=== PATIENT | female | born 1960 | race Caucasian/White ===

== ENCOUNTER → 2020-10-24 | Day surgery (SDC) | payer BC ==
[~2020-10-24] MED LIST: ACETAMINOPHEN 1000 MG/100 ML 100 ML IV ONE; BUPIVACAINE HCL 0.5% INJ 30 ML VIAL INJ ONE; CEFAZOLIN SOD 1 GM/NS 50ML 50 ML IV ONE; FENTANYL CITRATE/PF 100MCG/2 ML INJ ONE; HYDROCODON-ACE1 EA11 PO; KETOROLAC TROMETHAMINE 30 MG/ML VIAL ONE; LEVOTHYROXINE112 MCG PO; MUPIROCIN 2% OINT 22 GM TUBE ONE
[2020-10-24 09:38] VITALS: BP 122/84
== END | disposition home or self-care (01) ==
LOC: OR 05:28
PROVIDERS: ATTEND Plastic Surgery
DX: M72.0 Palmar fascial fibromatosis [Dupuytren] (principal); E03.9 Hypothyroidism, unspecified; F17.210 Nicotine dependence, cigarettes, uncomplicated; Z88.6 Allergy status to analgesic agent; Z01.810 Encounter for preprocedural cardiovascular examination; Z01.812 Encounter for preprocedural laboratory examination; Z20.822 Contact with and (suspected) exposure to COVID-19
CPT/HCPCS: 26123; 26125 ×3; 88304; 93005; J0131; J0690; J1885; J3010; U0002

== ENCOUNTER 2020-11-13 08:54 | Outpatient (RCR) | payer BC ==
[~2020-11-13 08:54] MED LIST changes: -ACETAMINOPHEN 1000 MG/100 ML 100 ML IV ONE; -BUPIVACAINE HCL 0.5% INJ 30 ML VIAL INJ ONE; -CEFAZOLIN SOD 1 GM/NS 50ML 50 ML IV ONE; -FENTANYL CITRATE/PF 100MCG/2 ML INJ ONE; -KETOROLAC TROMETHAMINE 30 MG/ML VIAL ONE; -MUPIROCIN 2% OINT 22 GM TUBE ONE
== END 2020-11-18 ==
LOC: OT 08:54
PROVIDERS: ATTEND Plastic Surgery
DX: M72.0 Palmar fascial fibromatosis [Dupuytren] (principal)

== ENCOUNTER 2020-12-05 08:52 | Outpatient (RCR) | payer BC | END 2020-12-18 | LOC: OT 08:52 | PROVIDERS: ATTEND Plastic Surgery | DX: M72.0 Palmar fascial fibromatosis [Dupuytren] (principal) ==